=== PATIENT | male | born 1955 | race Caucasian/White ===

== ENCOUNTER 2020-01-16 12:47 | Outpatient (CLI) | payer OTHER ==
--- NOTE | 2020-01-16 14:25 | MRI ---
MR CERVICAL SPINE WITHOUT CONTRAST INDICATION: 65-year-old male with history of disc degenerative disease and neck pain TECHNIQUE: Multiplanar multisequence MR images were obtained of the cervical spine without contrast. COMPARISON: Cervical spinal radiographs dated January 16, 2020 FINDINGS: Posterior fossa: Within normal limits. 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 There is an anterior cervical disc effusion plate at C6-7. Spinal alignment: There is very slight anterior translation of C7 on T1, T1 on T2 and T2 on T3 which is likely degenerative in nature. Craniocervical junction: Normal appearing. Prevertebral and perivertebral soft tissues: Visualized soft tissues appear within normal limits. Vertebral levels: C2-C3: There is a broad-based disc bulge with uncovertebral hypertrophy and facet joint degenerative change, greater on the right, inducing severe right and mild left neural foraminal narrowing. There is mild central canal narrowing at this level without spinal cord compression. C3-4: There is a right paracentral to right foraminal disc protrusion with facet hypertrophy inducing severe right neural foraminal narrowing and mild central canal narrowing. C4-5: No appreciable central canal or neuroforaminal narrowing. C5-C6: There is a broad-based osteophyte complex with some facet hypertrophy inducing mild bilateral neural foraminal narrowing and mild central canal narrowing. C6-C7: There is a residual uncovertebral hypertrophy, greater on the left inducing severe left neural foraminal narrowing. C7-T1: There is prominent left facet joint hypertrophy and a broad-based bulge inducing mild left harsh ral foraminal narrowing. IMPRESSION: 1. 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 2. Severe right and mild left neural foraminal narrowing at C2-3. 3. Severe right neural foraminal narrowing at C3-4. 4. Severe left neural foraminal narrowing at C6-7. 5. Mild bilateral neural foraminal narrowing mild central canal narrowing at C5-6. Mild left neural f oraminal narrowing at C7-T1.
--- NOTE | 2020-01-16 14:27 | RAD ---
EXAM: Cervical spine 5 views including flexion and extension views HISTORY: Neck pain radiculopathy, prior surgery COMPARISON: Cervical spine 05/11/2008 FINDINGS: Postop fusion at C4 and C5. Pedicle screw placement changes at C6 and C7. No evidence for abnormal translation between flexion and extension. Alignment:Overall straightening of the C-spine. Discs: Considerable discogenic disease. No evidence for a focal bone lesion. IMPRESSION: No overt acute process.
== END 2020-01-16 12:48 | disposition home or self-care (01) ==
LOC: TBSIIMAG 12:47
PROVIDERS: ATTEND Neurological Surgery
DX: M50.30 Other cervical disc degeneration, unspecified cervical region (principal); M48.02 Spinal stenosis, cervical region; M48.03 Spinal stenosis, cervicothoracic region; Z98.1 Arthrodesis status
CPT/HCPCS: 72050; 72141

== ENCOUNTER 2020-05-12 11:43 | Outpatient (CLI) | payer OTHER | END 2020-05-12 11:44 | disposition home or self-care (01) | LOC: BICRAD 11:43 | PROVIDERS: ATTEND Internal Medicine Pulmonary Disease | DX: R06.00 Dyspnea, unspecified (principal); I70.90 Unspecified atherosclerosis | CPT/HCPCS: 71046 ==

== ENCOUNTER 2022-05-25 09:57 | Outpatient (CLI) | payer OTHER | END 2022-05-25 09:58 | disposition home or self-care (01) | LOC: CT 09:57 | PROVIDERS: ATTEND Internal Medicine | DX: Z12.2 Encounter for screening for malignant neoplasm of respiratory organs (principal); Z87.891 Personal history of nicotine dependence; J44.9 Chronic obstructive pulmonary disease, unspecified; R91.1 Solitary pulmonary nodule; S22.061A Stable burst fracture of T7-T8 vertebra, initial encounter for closed fracture | CPT/HCPCS: 71271 ==

== ENCOUNTER 2023-01-31 09:12 | Outpatient (CLI) | payer OTHER | END 2023-01-31 09:13 | disposition home or self-care (01) | LOC: BICCT 09:12 | PROVIDERS: ATTEND Internal Medicine | DX: Z12.2 Encounter for screening for malignant neoplasm of respiratory organs (principal); J44.9 Chronic obstructive pulmonary disease, unspecified; R91.8 Other nonspecific abnormal finding of lung field; Z87.891 Personal history of nicotine dependence | CPT/HCPCS: 71271 ==

== ENCOUNTER 2024-02-11 13:16 | Outpatient (CLI) | payer OTHER | END 2024-02-11 13:17 | disposition home or self-care (01) | LOC: CT 13:16 | PROVIDERS: ATTEND Internal Medicine | DX: Z12.2 Encounter for screening for malignant neoplasm of respiratory organs (principal); R91.1 Solitary pulmonary nodule | CPT/HCPCS: 71271 ==